=== PATIENT | male | born 1995 | race African-American/Black ===

== ENCOUNTER 2016-06-17 15:15 | Emergency (ER) | payer BC ==
[~2016-06-17] VITALS: Ht 175.3 cm; Wt 70.0 kg
[2016-06-17 15:16] VITALS: BP 140/83; PULSE 69; RESP 12; TEMP 97.6; O2SAT 99
--- NOTE | 2016-06-17 16:10 | PD ---
HPI Chief Complaint: ENT Complaint Time Seen by Provider: 15:52 Travel History International Travel<30 days: No Contact w/Intl Traveler<30days: No Traveled to known affect area: No History of Present Illness HPI Patient is a 20-year-old male who presents emergency room for evaluation of right ear pressure and muffled hearing. Patient states his symptoms started 2 days ago. He denies any recent illnesses or upper respiratory infections. He denies any head trauma. He further denies any fever, chills, nausea or vomiting , dizziness. [facility] Past Medical History Medical History: Denies Significant Hx Family History Family History: Negative Social History Alcohol Use: No Tobacco Use: No Substance Use: No Allergies-Medications (Allergen,Severity, Reaction): Coded Allergies: No Known Allergies (Unverified , 06/17/16) Review of Systems Except as stated in HPI: all other systems reviewed are Neg HENT: Positive: Earache Physical Exam Narrative GENERAL: Well-nourished, well-developed patient. SKIN: Warm and dry. HEAD: Normocephalic. EYES: No scleral icterus. No injection or drainage. EARS: Bilateral pinnae and external canals appear within normal limits. Bilateral tympanic membranes without erythema, dullness or perforation. Right tympanic membrane with fluid level line. NECK: Supple, trachea midline. No JVD or lymphadenopathy. CARDIOVASCULAR: Regular rate and rhythm without murmurs, gallops, or rubs. RESPIRATORY: Breath sounds equal bilaterally. No accessory muscle use. GASTROINTESTINAL: Abdomen soft, non-tender, nondistended. MUSCULOSKELETAL: No cyanosis, or edema. BACK: Nontender without obvious deformity. No CVA tenderness. Data Data Last Documented VS Vital Signs Date Time Temp Pulse Resp B/P Pulse Ox O2 Delivery O2 Flow Rate FiO2 06/17/16 15:16 97.6 69 12 140/83 99 Room Air [facility] Medical Decision Making Medical Screen Exam Complete: Yes Emergency Medical Condition: Yes Interpretation(s) Vital Signs Date Time Temp Pulse Resp B/P Pulse Ox O2 Delivery O2 Flow Rate FiO2 06/17/16 15:16 97.6 69 12 140/83 99 Room Air Differential Diagnosis Otitis media versus otitis externa versus effusion versus other Narrative Course Patient is a 20-year-old L who presents emergency evaluation of right ear pressure and muffled hearing for the last 2 days. Physical examination appears most consistent with an effusion. Patient was advised that symptoms usually resolve on their own but can take several weeks to months. He was reassured that at this time it does not appear to be any infection. He was urged to follow up with his primary doctor or follow-up with an ear, nose, throat specialist. Patient verbalized understanding of discharge instructions. Patient is stable for discharge. Diagnosis Primary Impression: Otitis media with effusion Qualified Code: H65.91 - Otitis media with effusion, right Referrals: Primary Care Physician Patient Instructions: General Instructions, Serous Otitis Media (ED) Additional Instructions: Follow-up with your primary doctor Follow-up with ear, nose, throat specialist Symptoms will resolve on their own without treatment, it may take several weeks. You can trial [id number] nasal decongestant such as Sudafed Med/Other Pt SpecificInfo: No Change to Meds Disposition: 01 DISCHARGE HOME Condition: Stable Magui Leroy Jun 17, 2016 16:10
== END 2016-06-17 16:42 | disposition home or self-care (01) ==
LOC: NEPB 15:15
DX: H65.91 Unspecified nonsuppurative otitis media, right ear (principal)
CPT/HCPCS: 99283